=== PATIENT | male | born 1965 | race Caucasian/White ===

== ENCOUNTER 2020-02-07 14:56 | Outpatient (CLI) | payer OTHER, SELFPAY ==
[2020-02-08 17:56] LABS: SARS-CoV-2 RNA PCR Negative
== END 2020-02-07 14:57 | disposition home or self-care (01) ==
LOC: CHSLAB 15:03
PROVIDERS: PCP Internal Medicine; Visit Provider Internal Medicine
DX: Z20.828 Contact with and (suspected) exposure to other viral communicable diseases (principal)
CPT/HCPCS: 87635; C9803; U0003

== ENCOUNTER → 2020-06-29 01:53 | Outpatient (CLI) | payer OTHER, SELFPAY ==
[2020-07-01 18:41] LABS: SARS-CoV-2 RNA PCR Negative
== END ==
PROVIDERS: PCP Internal Medicine; Visit Provider Internal Medicine Gastroenterology
DX: Z01.812 Encounter for preprocedural laboratory examination (principal); Z20.822 Contact with and (suspected) exposure to COVID-19
CPT/HCPCS: C9803; U0003; U0005

== ENCOUNTER → 2020-08-03 00:07 | Outpatient (CLI) | payer OTHER, SELFPAY ==
[2020-08-03 16:57] LABS: SARS-CoV-2 RNA PCR Negative
== END ==
PROVIDERS: PCP Internal Medicine; Visit Provider Internal Medicine Gastroenterology
DX: Z01.812 Encounter for preprocedural laboratory examination (principal); Z20.822 Contact with and (suspected) exposure to COVID-19
CPT/HCPCS: C9803; U0003; U0005

== ENCOUNTER 2020-08-07 01:37 | Day surgery (SDC) | payer OTHER, SELFPAY ==
[2020-06-26 11:17] VITALS: BMI 24.0
[2020-07-16 12:41] VITALS: BMI 24.0
[2020-08-07 09:58] VITALS: BP 127/66; PULSE 57; RESP 18; TEMP 36.2; O2SAT 99
[2020-08-07] MEDS: LACTATED RINGERS 1,000 ML 150 ML IV CONT (10:05)
--- NOTE | 2020-08-07 10:51 | WPDANESEPPF ---
Anes - Initial Pre Proc Eval Procedure: Operation Date: 08/07/20 11:00 Proposed Procedures p Esophagogastroduodenoscopy & Screening Colonoscopy - Roderick Chappell MD Date/Time: 08/07/20 10:51 Surgeon: Roderick Chappell MD Pre Op Diagnosis: Abdomen pain, Neoplasm Screening Patient Data Age: 55 Gender: M Height: 1.74 m Weight: 76.6 kg Last Vital Signs Temp 97.1 F L 08/07/20 09:58 Pulse 57 L 08/07/20 09:58 Resp 18 08/07/20 09:58 BP 127/66 08/07/20 09:58 Pulse Ox 99 08/07/20 09:58 Allergies Allergy/AdvReac Type Severity Reaction Status Date / Time codeine AdvReac Nausea and Verified 08/07/20 09:56 Vomiting narcotic AdvReac Hypotension Uncoded 08/07/20 09:56 Home Medications Medication Instructions Recorded Confirmed Type testosterone 1 packet TRANSDERMAL DAILY 06/26/20 08/07/20 History Patient hx anesthesia problems: none Family hx anesthesia problems: none PMF Past Medical History Medical History (Updated 08/07/20 @ 10:51 by Zack Frank MD) Hypogonadotropic hypogonadism Normal colonoscopy Overweight (BMI 25.0-29.9) Social History Social History (Updated 04/12/20 @ 10:52 by Shannan Cantu CMA) Smoking status: Never smoker Alcohol intake: current Substance use: never Substance use type: does not use Living arrangements: alone Gender identity (if verbalized by the patient): Male Spiritual care concerns: No Anes - Eval Final PreProcedure Day of Procedure 08/07/20 10:51 Patient weight: overweight Heart: regular rate and rhythm Lungs: clear to auscultation Airway: Mallampati scale class II Neurological: alert and oriented Last oral intake: >/= 8 hours ASA classification: II Emergent: no Anesthetic plan: proceed Anesthesia type and monitoring: general GIVS and standard monitoring Informed Consent: The patient's anesthetic plan and its attendant risks and benefits were discussed with the patient/family/POA. Questions were solicited and answers provided to the satisfaction of the patient/family/POA.
--- NOTE | 2020-08-07 10:55 | PM.HPGS ---
History of Present Illness History of Present Illness Consent: Risks, benefits, and alternatives have been discussed and questions answered. Patient agrees to proceed with procedure. Chief complaint: Abdomen pain, Neoplasm Screening Narrative: Endy Parr is a 55 year old male with chronic pain in left abdomen worse after eating/drinking. He also needs colon screening. Review of Systems Constitutional: Constitutional: Denies headache(s) and Denies weakness Eyes: Eyes: Denies blurry vision ENT: Reports Normal hearing present, Denies headache(s) and Denies neck pain Cardiovascular: Cardiovascular: Denies chest pain and Denies dyspnea Respiratory: Respiratory: Denies dyspnea Gastrointestinal: Gastrointestinal: Reports no additional gastrointestinal complaints Genitourinary: Genitourinary: Denies dysuria Musculoskeletal: Musculoskeletal: Denies neck pain Integumentary/Breasts: Skin/Breast: Denies dry skin Neurologic: Reports Normal hearing present, Denies headache(s) and Denies weakness Psychiatric: Psychiatric: Denies anxiety Endocrine: Endocrine: Denies change in body appearance Hematologic/Lymphatic: Hematologic/Lymphatic: Denies easy bleeding Allergic/Immunologic: Allergic/Immunologic: Denies urticaria [facility] Past Medical History Medical History (Updated 08/07/20 @ 10:56 by Roderick Chappell MD) Colon cancer screening Hypogonadotropic hypogonadism Left sided abdominal pain Normal colonoscopy Overweight (BMI 25.0-29.9) Social History Social History (Updated 04/12/20 @ 10:52 by Shannan Cantu CMA) Smoking status: Never smoker Alcohol intake: current Substance use: never Substance use type: does not use Living arrangements: alone Gender identity (if verbalized by the patient): Male Spiritual care concerns: No Meds Home Medications and Allergies Home Medications Medication Instructions Recorded Confirmed Type testosterone 1 packet TRANSDERMAL DAILY 06/26/20 08/07/20 History Allergies Allergy/AdvReac Type Severity Reaction Status Date / Time codeine AdvReac Nausea and Verified 08/07/20 09:56 Vomiting narcotic AdvReac Hypotension Uncoded 08/07/20 09:56 Vital Signs Vital Signs - 24 hr 08/07/20 09:58 Temperature 97.1 F L Pulse Rate 57 L Respiratory Rate 18 Blood Pressure 127/66 Pulse Oximetry 99 Exam Const: General: comfortable and no acute distress HENMT: General nose exam: Normal nares present Eyes: General: appearance normal, both eyes and all related structures Neck: Neck: no JVD Resp: Auscultation: clear to auscultation bilaterally Cardio: Rate: regular rate Rhythm: regular rhythm GI: Inspection: non-distended GI Palp: Yes Soft to palpation Skin: General skin exam: normal color Neuro: General: gait normal Speech: normal speech Extrem: General: normal to inspection Psych: Mental Status: mental status grossly normal Assessment and Plan Assessment and plan (1) Left sided abdominal pain: Code(s): R10.9 - Unspecified abdominal pain Status: Acute Assessment and Plan: egd (2) Colon cancer screening: Code(s): Z12.11 - Encounter for screening for malignant neoplasm of colon Status: Acute Assessment and Plan: colonoscopy
[2020-08-07 11:33] VITALS: BP 127/78; PULSE 58; RESP 20; O2SAT 99
[2020-08-07 11:43] VITALS: BP 120/72; PULSE 55; RESP 20; O2SAT 100
[2020-08-07 11:53] VITALS: BP 120/76; PULSE 51; RESP 17; O2SAT 100
== END 2020-08-07 12:02 | disposition home or self-care (01) ==
PROVIDERS: PCP Internal Medicine; Visit Provider Internal Medicine Gastroenterology
PROC: 0DJ08ZZ Inspection of Upper Intestinal Tract, Via Natural or Artificial Opening Endoscopic (ICD-10-PCS; CPT 43235; principal; 2020-08-07 11:00)
DX: Z12.11 Encounter for screening for malignant neoplasm of colon (principal); D12.3 Benign neoplasm of transverse colon; K64.8 Other hemorrhoids; K29.50 Unspecified chronic gastritis without bleeding; E29.1 Testicular hypofunction
CPT/HCPCS: 45380; 43239; 88305; J2704; J7120

== ENCOUNTER 2020-09-10 10:53 | Outpatient (CLI) | payer OTHER, SELFPAY ==
--- NOTE | ~2020-09-10 | XR_ITS ---
EXAMINATION: XR small bowel follow through DATE: 09/10/2020 12:52 INDICATION: Left-sided abdominal pain TECHNIQUE: Burner Machine Operator radiograph(s) of the abdomen was/were obtained. Oral contrast was administered, and sequential radiographs of the abdomen were obtained until oral contrast was noted to be in the proxi mal colon. Spot fluoroscopic images of the small bowel were obtained. Fluoroscopy exposure time was 2 .7 minutes. The DAP for this procedure was 62.74 Gycm2. COMPARISON: None. FINDINGS: Burner Machine Operator image is unremarkable. There are no dilated loops of bowel. Transit time from the sto mach to proximal colon was approximately 60 minutes. There is normal caliber and mucosal fold pattern throughout the small bowel. Terminal ileum is normal. No tethering or abnormal mass effect observe d upon the small bowel with real-time fluoroscopy. IMPRESSION: 1. Unremarkable small bowel follow-through. No correlate for the patient's left-sided abdominal pain Reviewed, dictated and finalized at location A. IMPRESSION: 1. Unremarkable small bowel follow-through. No correlate for the patient's left -sided abdominal pain
== END 2020-09-10 10:54 | disposition home or self-care (01) ==
LOC: ANHIMG 10:55
PROVIDERS: PCP Internal Medicine; Visit Provider Internal Medicine Gastroenterology
DX: R10.9 Unspecified abdominal pain (principal)
CPT/HCPCS: 74250

== ENCOUNTER 2021-07-08 17:42 | Emergency (ER) | payer MEDICAID, SELFPAY ==
[2021-07-08 18:05] VITALS: BP 116/80; PULSE 86; RESP 18; TEMP 36.7; O2SAT 98
--- NOTE | 2021-07-08 19:33 | ED.ANIMALBIT ---
HPI - Animal Bite General Chief Complaint: Animal Bite Stated Complaint: needs rabies vaccine Time Seen by Provider: 07/08/21 18:39 Source: patient Mode of arrival: ambulatory Limitations: no limitations History of Present Illness HPI narrative: This is a 56-year-old male that presents to the emergency department for animal bite sustained yesterday. Reports he had rescued several squirrels. He was releasing them into the wild and was bit by 1. He contacted the health department. He was updated on his tetanus vaccine and told to come to the emergency department for administration of rabies vaccine and immunoglobulin. Denies fever, erythema, or abnormal drainage. Related Data Home Medications Medication Instructions Recorded Confirmed testosterone 1 packet transdermal DAILY 06/26/20 08/07/20 Allergies Allergy/AdvReac Type Severity Reaction Status Date / Time codeine AdvReac Nausea and Verified 08/07/20 09:56 Vomiting narcotic AdvReac Hypotension Uncoded 08/07/20 09:56 Review of Systems Review of Systems: CONSTITUTIONAL: Denies fever SKIN: Reports bite wound All systems reviewed & are unremarkable except as noted in HPI and below PMFSH Past Medical History Medical History (Updated 07/08/21 @ 20:20 by Nuria Ayala PA-C) Colon cancer screening Hypogonadotropic hypogonadism Left sided abdominal pain Normal colonoscopy Overweight (BMI 25.0-29.9) Social History Social History (Updated 04/12/20 @ 10:52 by Shannan Cantu [facility]) Smoking status: Never smoker Alcohol intake: current Substance use: never Substance use type: does not use Gender identity (if verbalized by the patient): Male Spiritual care concerns: No Exam Narrative: GENERAL: Well-appearing, well-nourished, and in no acute distress. HEAD: Normocephalic, atraumatic. EYES: EOMI. EXTREMITIES: Normal range of motion. No edema. Very small superficial bite stanley to the right 1st and 5th fingers without surrounding erythema or warmth SKIN: Warm, dry, no rash. NEURO: No focal deficits. Alert and oriented x3. PSYCH: Normal mood and affect Course Vital Signs Vital signs: Vital Signs Temperature 98.0 F 07/08/21 18:05 Pulse Rate 86 07/08/21 18:05 Respiratory Rate 18 07/08/21 18:05 Blood Pressure 116/80 07/08/21 18:05 Pulse Oximetry 98 07/08/21 18:05 Oxygen Delivery Room Air 07/08/21 18:05 Temperature 98.0 F 07/08/21 18:05 Pulse Rate 86 07/08/21 18:05 Respiratory Rate 18 07/08/21 18:05 Blood Pressure 116/80 07/08/21 18:05 Pulse Oximetry 98 07/08/21 18:05 Oxygen Delivery Room Air 07/08/21 18:05 MDM - Animal Bite MDM Narrative Medical decision making narrative: Patient presents to the ER for squirrel bite sustained yesterday. Contacted the health department and was prompted to be seen here to receive his first rabies vaccination and immunoglobulin. No active signs of infection of the bites at this time. Has two very small superficial bites wounds to the right 1st and 5th fingers. He was updated on tetanus by the health department. Rabies vaccination and immunoglobulin given. Marlen Silva will be arranging further vaccinations with patient. He was given warnings to return to the ER Critical Care Time Critical Care Time Critical Care Time: No Discharge Plan Discharge Clinical Impression: Bitten by squirrel, initial encounter Patient Disposition: Home, Self-Care Condition: Stable Instructions: Antibiotic Form, Animal Bite (ED) Additional Instructions: Return to the ER if you experience fever, redness and swelling of your wounds, abnormal drainage from your wounds, or any other symptoms that are concerning to you Take oral antibiotic as prescribed. This will help prevent infection in the wounds. You will receive your next dose of rabies vaccination on Wednesday (07/11). Contact Marlen Silva to arrange this . You will then receive a vaccine 07/15 and
[2021-07-08] MEDS: RABIES IMMUNE GLOBULIN/PF 300 UNITS/ML VIAL 100 UNITS IM (19:47)
[2021-07-08] MEDS: RABIES IMMUNE GLOBULIN/PF 1,500 UNITS/5 ML VIAL 1500 UNITS IM (19:47)
[2021-07-08] MEDS: RABIES VACCINE (RABAVERT) 2.5 UNITS VIAL IM (19:54)
== END 2021-07-08 20:38 | disposition home or self-care (01) ==
PROVIDERS: Emergency Provider Emergency Medicine; PCP Internal Medicine
DX: S61.051A Open bite of right thumb without damage to nail, initial encounter (principal); S61.256A Open bite of right little finger without damage to nail, initial encounter; Z23 Encounter for immunization; W53.21XA Bitten by squirrel, initial encounter
CPT/HCPCS: 90375; 90471; 90675; 96372; 99284

== ENCOUNTER 2021-07-22 07:28 | Outpatient (RCR) | payer MEDICAID, SELFPAY | END 2021-10-09 23:59 | disposition home or self-care (01) | LOC: ANHVASCINF 07:28 | PROVIDERS: PCP Internal Medicine; Visit Provider Physician Assistant | DX: Z20.3 Contact with and (suspected) exposure to rabies (principal); W53.21XA Bitten by squirrel, initial encounter | CPT/HCPCS: 90471; 90675 ==

== ENCOUNTER 2022-03-14 09:55 | Emergency (ER) | payer BC, MEDICAID, SELFPAY ==
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
--- NOTE | ~2022-03-14 | CT_ITS ---
EXAMINATION: CT brain wo con INDICATION: Head injury COMPARISON: 09/11/2013 TECHNIQUE: Standard unenhanced head CT. The dose-length product (DLP) was 605.33 mGy-cm. The mA was a djusted according to patient size. Iterative reconstruction technique was employed. FINDINGS: There is no intracranial hemorrhage, acute infarction, or abnormal mass lesion. The ventric les are normal. There is no abnormal mass effect or midline shift. The paulino-white matter differentiat ion is normal. The basal cisterns are patent. The orbits are normal. The paranasal sinuses, mastoids and calvarium are normal. IMPRESSION: 1. No acute intracranial abnormality. Reviewed, dictated and finalized at location A. L MAKER
[2022-03-14 09:56] VITALS: BP 134/90; PULSE 81; RESP 16; O2SAT 100
[2022-03-14 10:03] VITALS: TEMP 35.9
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
[2022-03-14 10:55] VITALS: BP 134/90; PULSE 87; RESP 16; TEMP 35.9; O2SAT 100
== END 2022-03-14 11:03 | disposition home or self-care (01) ==
PROVIDERS: Emergency Provider Internal Medicine Critical Care Medicine; PCP Internal Medicine
DX: F07.81 Postconcussional syndrome (principal); R07.89 Other chest pain; Y04.0XXA Assault by unarmed brawl or fight, initial encounter
CPT/HCPCS: 70450; 71045; 99284

== ENCOUNTER 2022-09-15 14:58 | Outpatient (CLI) | payer BC, SELFPAY ==
--- NOTE | ~2022-09-15 | XR_ITS ---
EXAM: XR knee RT 3V DATE: 09/15/2022 15:16 HISTORY: Injury-hyperextension. Rt. knee pain x1 month; worsening. . COMPARISON: None available. FINDINGS: Subjectively decreased mineralization. No fracture or dislocation. No lytic or blastic les ion. Joint spaces are minimal medial joint space narrowing and medial and patellofemoral osteophytosi s. No erosion or periosteal change. Soft tissues within normal limits. IMPRESSION: No acute osseous finding. Osteopenia. Mild right knee osteoarthritis. Reviewed, dictated and finalized at location K. IMPRESSION: No acute osseous finding. Osteopenia. Mild right knee osteoarthriti s.
== END 2022-09-15 14:59 | disposition home or self-care (01) ==
LOC: CHSIMG 15:00
PROVIDERS: PCP Internal Medicine; Visit Provider Nurse Practitioner Family
DX: M25.561 Pain in right knee (principal); M85.861 Other specified disorders of bone density and structure, right lower leg; M17.11 Unilateral primary osteoarthritis, right knee
CPT/HCPCS: 73562

== ENCOUNTER → 2022-09-29 14:10 | Outpatient (CLI) | payer BC, MEDICAID, SELFPAY ==
--- NOTE | ~2022-09-29 | MR_ITS ---
EXAMINATION: MR knee RT wo con DATE: 09/29/2022 14:47 INDICATION: Right knee pain and arthritis TECHNIQUE: Magnetic resonance imaging (MRI) of the right knee was performed without intravenous contr ast. Sequences included coronal PD-weighted FSE, coronal PD-weighted FS FSE, sagittal T2-weighted FS E, sagittal PD-weighted FS FSE and axial PD weighted fat saturated FSE. COMPARISON: Right knee radiographs dated 09/15/2022 FINDINGS: Medial compartment: Medial meniscus is normal. Articular cartilage is normal. Lateral compartment: Lateral meniscus is normal. Articular cartilage is normal. Patellofemoral compartment: Curved deep chondral fissure involving greater than 50% of the cartilage thickness but without degene rative subchondral changes at the central aspect of the lateral patellar facet. Posterior chondral fi ssuring involving less than 50% cartilage thickness at the medial facet evident the inferior aspect o f the medial trochlea. Ligaments and tendons: Anterior and posterior cruciate ligaments are normal. The medial collateral ligament and fibular deangelo ateral ligament complex are normal. The extensor mechanism is normal. The visualized medial and later al hamstring tendons as well as the iliotibial band are normal. Fluid: Physiologic amount of fluid in the joint space. No loose osteochondral bodies identified. Osseous/other: Normal marrow signal. No fracture or pathologic marrow replacing process. IMPRESSION: 1. Mild patellofemoral osteoarthritis with moderate grade chondromalacia. Reviewed, dictated and finalized at location A.
== END ==
PROVIDERS: PCP Internal Medicine; Visit Provider Nurse Practitioner Family
DX: M17.11 Unilateral primary osteoarthritis, right knee (principal)
CPT/HCPCS: 73721

== ENCOUNTER 2024-04-24 08:14 | Outpatient (CLI) | payer BC, SELFPAY ==
--- NOTE | ~2024-04-24 | CT_ITS ---
CT of the Abdomen and Pelvis: Indication: Abdominal pain Technique: 2.5 mm axial scans were obtained through the abdomen and pelvis following intravenous adm inistration of 100 cc of Omnipaque 350. Dose reduction technique was used on this scan by utilizing a utomated exposure control and iterative reconstruction technique. The dose-length product (DLP) was 3 82.39 mGy-cm. Findings: Scans through the lung bases are unremarkable. The liver, spleen, pancreas, gallbladder, adrenals and kidneys are within normal limits. No evidence of aortic aneurysm. No lymphadenopathy. No bowel obstruction or bowel wall thickening. There is no evidence to suggest acute appendicitis. Images through the pelvis were performed. Urinary bladder unremarkable. Prostate gland and seminal ve sicles are unremarkable. No ascites. Impression: No significant abnormalities seen. Reviewed, dictated and finalized at [facility]. Impression: No significant abnormalities seen.
--- OUTSIDE RECORDS SUMMARY | 2024-04-24 08:35 | XMS_ITS ---
Author Organization [facility] Address [address] [place], [place] [id number] Care Team Providers Care Piping Manager Name Role Phone Florencio Martinez Unavailable Unavailable DORA WELSH Unavailable [phone] Encounters Encounter Location Date Provider Diagnosis [facility] [address] [place], [place] [id number] 09/20/2023 DORA WLESH Plan Of Treatment No Information Progress Notes * OPAL OSCARDOB: 6 (58 yo M)Acc No.[id number]:09/20/2023 Patient: OPAL LACEY :1965 A ge:58 Y S ex:Male Address:[address] [place] [address] * true * Date: Generated for James serrano/Abdirizak/eTransmitting on: 0 04/24/2024 08:35 AM CDT
--- OUTSIDE RECORDS SUMMARY | 2024-04-24 08:35 | XMS_ITS | Referral Summary ---
Author Organization [facility] Address [address] [place] [id number] Care Team Providers Care Shift Manager Name Role Phone Florencio Martinez MD Primary Care Provider [phone] Encounters Date Type Department Care Team Description 04/03/2024 8:30 AM NAVAL AIRCREWMAN OPERATOR Office Visit [facility] [address] [phone] Svetlana Mckeon, OD Anatomical narrow angle borderline glaucoma, bilateral (Primary Dx); Family history of macular degeneration; Age-related nuclear cataract of both eyes 02/22/2024 Telephone [facility] [address] [place] [phone] Svetlana Mckeon, OD 02/21/2024 8:00 AM [employer]CREW[employer] OPERATOR Office Visit [facility] [address] [phone] Svetlana Mckeon, OD Anatomical narrow angle borderline glaucoma, bilateral (Primary Dx); Family history of macular degeneration from Last 3 Months Allergies Active Allergy Reactions Criticality Noted Date Comments Codeine Dizziness Medium 12/21/2018 Medications testosterone 20.25 mg/1.25 gram (1.62 %) gel in metered-dose pump APPLY 1 PUMP (20.25MG) TO SKIN DAILY IN THE MORNING 01/20/2024 Active Active Problems Problem Noted Date Diagnosed Date Age-related nuclear cataract of both eyes 2024 Assessment & Plan (04/03/2024 9:14 AM NAVAL AIRCREWMAN OPERATOR): NVS, monitor Anatomical narrow angle borderline glaucoma, amilcar ateral 02/21/2024 Assessment & Plan (04/03/2024 9:15 AM NAVAL AIRCREWMAN OPERATOR): Normal intraocular pressure (IOP) both eyes (OU) Angles not closeable on gonio - lens rise both eyes (OU) Fu 1 year sooner prn Assessment & Plan (02/21/2024 8:35 AM NAVAL AIRCREWMAN OPERATOR): Normal intraocular pressure (IOP) both eyes (OU) Angles not closeable on gonio - lens rise both eyes (OU) FU for am DFE, pt defers, helicopter ride today Family history of macular degeneration 5 Assessment & Plan (04/03/2024 9:15 AM NAVAL AIRCREWMAN OPERATOR): + Brother, mother, - mother had injections Normal exam, monitor Assessment & Plan (02/21/2024 8:36 AM NAVAL AIRCREWMAN OPERATOR): + Brother, mother, - mother had injections Fu for DFE Atrophy of both testes 03/17/2013 Hypogonadism in male 06/07/2010 Overview (05/21/2017): Description: Hypogonadism Social History Tobacco Use Types Packs/Day Years Used Date Smoking Tobacco: Never Sex and Gender Information Value Date Recorded Sex Assigned at Not on file Legal Sex Male 1:22 AM NAVAL AIRCREWMAN OPERATOR Gender Identity Not on file Sexual Orientation Not on file Last Filed Vital Signs Vital Sign Reading Time Taken Comments Blood Pressure 110/65 03/23/2014 1:10 PM NAVAL AIRCREWMAN OPERATOR Pulse 60 03/23/2014 1:10 PM NAVAL AIRCREWMAN OPERATOR Temperature - - Respiratory Rate - - Oxygen Saturation - - Inhaled Oxygen Concentration - - Weight 71.4 kg (157 lb 6.2 oz) 03/23/2014 1:10 P M NAVAL [employer]CREWMAN OPERATOR Height 174.6 cm (5' 8.75 ) 03/23/2014 1:10 PM CS T Body Mass Index 23.41 03/23/2014 1:10 PM NAVAL AIRCREWMAN OPERATOR Plan of Treatment Not on file Insurance [employer] Care Teams Shift Manager Relationship Specialty Start Date End Date Florencio Martinez MD PCP - General Internal Medicine 06/14/17
--- OUTSIDE RECORDS SUMMARY | 2024-04-24 08:35 | XMS_ITS | Clinical Summary ---
Author Organization [facility] Address [address] [place] [phone] Care Team Providers Care Grain Farmer Name Role Phone Florencio Martinez MD Primary Care Provider [phone] Allergies Active Allergy Reactions Criticality Noted Date Comments Codeine Dizziness Medium 12/21/2018 Medications testosterone 20.25 mg/1.25 gram (1.62 %) gel in metered-dose pump APPLY 1 PUMP (20.25MG) TO SKIN DAILY IN THE MORNING 01/20/2024 Active Active Problems Problem Noted Date Diagnosed Date Age-related nuclear cataract of both eyes 2024 Assessment & Plan (04/03/2024 9:14 AM MANAGER CLIENT SUPPORT): NVS, monitor Anatomical narrow angle borderline glaucoma, amilcar ateral 02/21/2024 Assessment & Plan (04/03/2024 9:15 AM MANAGER CLIENT SUPPORT): Normal intraocular pressure (IOP) both eyes (OU) Angles not closeable on gonio - lens rise both eyes (OU) Fu 1 year sooner prn Assessment & Plan (02/21/2024 8:35 AM MANAGER CLIENT SUPPORT): Normal intraocular pressure (IOP) both eyes (OU) Angles not closeable on gonio - lens rise both eyes (OU) FU for am DFE, pt defers, helicopter ride today Family history of macular degeneration Assessment & Plan (04/03/2024 9:15 AM MANAGER CLIENT SUPPORT): + Brother, mother, - mother had injections Normal exam, monitor Assessment & Plan (02/21/2024 8:36 AM MANAGER CLIENT SUPPORT): + Brother, mother, - mother had injections Fu for DFE Atrophy of both testes 03/17/2013 Hypogonadism in male 06/07/2010 Overview (05/21/2017): Description: Hypogonadism Encounters Date Type Department Care Team Description 04/03/2024 8:30 AM MANAGER CLIENT SUPPORT Office Visit [facility] [address] [place] [phone] Svetlana Mckeon, OD Anatomical narrow angle borderline glaucoma, bilateral (Primary Dx); Family history of macular degeneration; Age-related nuclear cataract of both eyes 02/22/2024 Telephone [facility] [address] [place] [address] Svetlana Mckeon, OD 02/21/2024 8:00 AM MANAGER CLIENT SUPPORT Office Visit [place] [facility] [address] [address] Svetlana Mckeon, OD Anatomical narrow angle borderline glaucoma, bilateral (Primary Dx); Family history of macular degeneration from Last 3 Months Family History Medical History Relation Name Comments Diabetes Cousin Family history of diabetes mellitus - (Added by TW Conv) Diabetes Father Family history of diabetes mellitus - (Added by TW Conv) Hyperlipidemia Father High choleste rol - (Added by TW Conv) Hypertension Father Family history of hypertension - (Added by TW Conv) Diabetes Maternal Grandfather Family history of diabetes mellitus - Relation: Grandfather (Added by TW Conv) Macular degeneration Mother Macular degeneration Mother's Brother Relation Name Status Comments Cousin Father Maternal Grandfather Mother Mother's Brother Social History Tobacco Use Types Packs/Day Years Used Date Smoking Tobacco: Never Sex and Gender Information Value Date Recorded Sex Assigned at Not on file Legal Sex Male 1:22 AM MANAGER CLIENT SUPPORT Gender Identity Not on file Sexual Orientation Not on file Obstetrics History Last Filed Vital Signs Vital Sign Reading Time Taken Comments Blood Pressure 110/65 03/23/2014 1:10 PM MANAGER CLIENT SUPPORT Pulse 60 03/23/2014 1:10 PM MANAGER CLIENT SUPPORT Temperature - - Respiratory Rate - - Oxygen Saturation - - Inhaled Oxygen Concentration - - Weight 71.4 kg (157 lb 6.2 oz) 03/23/2014 1:10 P M MANAGER CLIENT SUPPORT Height 174.6 cm (5' 8.75 ) 03/23/2014 1:10 PM CS T Body Mass Index 23.41 03/23/2014 1:10 PM MANAGER CLIENT SUPPORT Plan of Treatment Health Maintenance Due Date Last Done Comments Colon Cancer Screening-Colonoscopy 1965 Depression Screening 1965 Hepatitis C Screening 1965 Prostate Cancer Screening-PSA 1965 Hepatitis B Screening 1983 Regular Well Visit/Exam 18-64 1983 Zoster Vaccine (1 of 2) 2015 Influenza Vaccine (#1) 2023 DTaP/Tdap/Td Vaccine (3 - Td or Tdap) 07/09/2031 07/08/2021, 05/30/2017 Pneumococcal vaccine <65 Aged Out No longer eligible based on patient's age to complete this topic Insurance [employer] OOS Care Teams Grain Farmer Relationship Specialty Start Date End Date Florencio Martinez MD PCP - General Internal Medicine 06/14/17
--- OUTSIDE RECORDS SUMMARY | 2024-04-24 08:35 | XMS_ITS | Patient Health Record ---
Author Organization [facility] Address [address] [place], [place] [phone] Care Team Providers Care Time Clock Repairer Name Role Phone Florencio Martinez Unavailable Unavailable DORA WELSH Unavailable [phone] Allergies Allergen (clinical drug ingredient) Drug/Non Drug Allergy documented on EMR Reaction Allergy Type Onset Date Status codeine Codeine Unknown Drug Allergy Active Reason For Referral No Information Medications Medication SIG (Take, Route, Frequency, Duration) Notes Start Date End Date Status Clotrimazole-Betamet hasone 1-0.05 % 1 application Externally Twice a day 30g tube or similar 12/21/2022 Active Clotrimazole-Betamet hasone 1-0.05 % 1 application Externally to skin Twice a day one tube, 30g or similar 11/30/2022 Active Encounters Encounter Location Date Provider Diagnosis [facility] [address] [place], [place] [phone] 09/20/2023 DORA SNOOK [facility] [place] [address] [facility] [address] [place], [place] [phone] 09/20/2023 DORA SNOOK Plan Of Treatment No Information Insurance Providers Payer Name Payer Address Payer Phone Subscriber Number Group Number Insured Name Patient Relationship to Insured Coverage Start Date Coverage End Date [facility] ([facility]) ATTN CLAIMS [address] [place] [address] [id number] OPAL OSCAR Self - patient is the insured Medical (General) History Medical History History ICD Code anemia Skin Disorder Surgical History Surgery Date(Month/Year) Hand surgery
--- OUTSIDE RECORDS SUMMARY | 2024-04-24 08:35 | XMS_ITS | Clinical Summary ---
Author Organization [facility] Address [address] [place] [address] Care Team Providers Care Network Security Engineer Name Role Phone Florencio Martinez MD Primary Care Provider [phone] Allergies Active Allergy Reactions Criticality Noted Date Comments Codeine Dizziness Medium 12/21/2018 Medications No known medications Social History Tobacco Use Types Packs/Day Years Used Date Smoking Tobacco: Never Smokeless Tobacco: Never Alcohol Use Standard Drinks/Week Comments Yes 0 (1 standard drink = 0.6 oz pur e alcohol) 6 pack/week Sex and Gender Information Value Date Recorded Sex Assigned at Not on file Legal Sex Male 5:17 PM WOOD LATHE OPERATOR Gender Identity Not on file Sexual Orientation Not on file Last Filed Vital Signs Vital Sign Reading Time Taken Comments Blood Pressure 130/75 12/21/2018 10:12 PM WOOD LATHE OPERATOR Pulse 56 12/21/2018 10:12 PM WOOD LATHE OPERATOR Temperature 36.1 C (97 F) 12/21/2018 5:42 PM WOOD LATHE OPERATOR Respiratory Rate 18 12/21/2018 10:12 PM WOOD LATHE OPERATOR Oxygen Saturation 96% 12/21/2018 10:12 PM WOOD LATHE OPERATOR Inhaled Oxygen Concentration - - Weight 72.6 kg (160 lb) 12/21/2018 5:42 PM WOOD LATHE OPERATOR Height 172.7 cm (5' 8 ) 12/21/2018 5:42 PM WOOD LATHE OPERATOR Body Mass Index 24.33 12/21/2018 5:42 PM WOOD LATHE OPERATOR Plan of Treatment Health Maintenance Due Date Last Done Comments Colorectal Cancer Screening Colonoscopy (10 Years) 1965 Annual Physical 02/10/1968 Hepatitis C 1983 DTaP, Tdap and Td Vaccines ( 1 - Tdap) 02/10/1984 Hepatitis B Vaccines (1 of 3 - 19+ 3-dose series) 02/10/1984 Zoster Vaccines (1 of 2) 2015 COVID-19 Vaccine (2023-2 5 season) 2023 Influenza Adult (#1) 2023 Meningococcal B Vaccine Aged Out No l onger eligible based on patient's age to complete this topic Meningococcal Vaccine Aged Out No luis lee eligible based on patient's age to complete this topic Pneumococcal Vaccine: Pediat rics (0 to 5 Years) and At-Risk Patients (6 to 64 Years) Aged Out No longer eligible b ased on patient's age to complete this topic RSV Immunizations Under 20 Months Aged Out No longer eligible based on patient's age to complete this topic Care Teams Network Security Engineer Relationship Specialty Start Date End Date Florencio Martinez MD [address] [place] [address] PCP - General INTERNAL MEDICINE 12/21/18
--- OUTSIDE RECORDS SUMMARY | 2024-04-24 08:36 | XMS_ITS ---
Author Organization [facility] Address [address] [place], [place] [phone] Care Team Providers Care Market Development Trainer Name Role Phone Florencio aMrtinez Unavailable Unavailable OOKDORA Unavailable [phone] Medications Medication SIG (Take, Route, Frequency, Duration) Notes Start Date End Date Status Clotrimazole-Betamet hasone 1-0.05 % 1 application Externally Twice a day for 14 days one tube, 30g or similar 09/20/2023 10/18/2023 Active Encounters Encounter Location Date Provider Diagnosis [facility] [address] [place], [place] [id number] 09/20/2023 DORA WELSH Plan Of Treatment Medication Medication Name Sig Start Date Stop Date Notes Clotrimazole-Betametha sone 1-0.05 % 1 application Externally Twice a day for 14 days 09/20/2023 10/18/2023 one tube, 30g or similar Progress Notes * OPAL OSCARDOB: 6 (58 yo M)Acc No.[id number]:09/20/2023 Patient: OPAL LACEY :1965 A ge:58 Y S ex:Male Address:[address] [place] [address] * Refills Start Clotrimazole-Betamethasone Cream, 1-0.05 %, Externally, 1, 1 application, Twice a day, 14 days, Refills=1 * true * Date: Generated for James serrano/Abdirizak/Domingoitting on: 0 04/24/2024 08:35 AM CDT
--- OUTSIDE RECORDS SUMMARY | 2024-04-24 08:36 | XMS_ITS ---
Author Organization [facility] Address [address] [place], [place] [phone] Care Team Providers Care Proof Coins Inspector Name Role Phone Florencio Martinez Unavailable Unavailable DORA WELSH Unavailable [phone] Allergies Allergen (clinical drug ingredient) Drug/Non Drug Allergy documented on EMR Reaction Allergy Type Onset Date Status codeine Codeine Unknown Drug Allergy Active REASON FOR VISIT Athlete Foot Check, The patient is pleased to report that this is the best that his feet have felt in a long time. He is happy with his improvement Medications Medication SIG (Take, Route, Frequency, Duration) Notes Start Date End Date Status Clotrimazole-Betamet hasone 1-0.05 % 1 application Externally Twice a day 30g tube or similar 12/21/2022 Active Clotrimazole-Betamet hasone 1-0.05 % 1 application Externally to skin Twice a day one tube, 30g or similar 11/30/2022 Active Vital Signs Weight 160 lbs 12/21/2022 Weight-kg 72.57 kg 12/21/2022 Height 68 in 12/21/2022 Height-cm 172.72 cm 12/21/2022 BMI 24.33 kg/m2 12/21/2022 Encounters Encounter Location Date Provider Diagnosis [facility] [address] [place], [place] [id number] 12/21/2022 DORA WELSH Tinea pedis B35.3 ; Other eczema L30.8 ; Pain in right foot M79.671 and Left foot pain M79.672 Assessments Encounter Date Diagnosis (ICD Code) Assessment Notes Treatment Notes Treatment Clinical Notes Section Notes 12/21/2022 Tinea pedis (ICD-10 - B35.3) Tinea Pedis: Tinea pedis (athlete's foot) is a dermatologic fungal infection that typically affects the epidermis and is the most common dermatophyte infection. Tinea pedis is transmitted via direct skin contact, contaminated floors, towels and clothing/shoes and thrives in warm, moist environments. Approximately 26.5 million people are affected annually. Nearly half of these people will suffer from multiple episodes for years. Interdigital tinea pedis presents as erythematous, pruritic, scales or erosions between toes. [place]-type tinea pedis affects the soles and medial and lateral sides of the feet and often is itchy, hyperkeratotic and flaking. Inflammatory tinea pedis is characterized by pruritic erythematous, painful vesicles or bullae most commonly on the medial foot. Treatment varies from OTC preparations to a large variety of topical and oral medications. Patient education and proper foot hygiene are important components to the successful treatment of this infection. 12/21/2022 Other eczema (ICD-10 - L30.8) 12/21/2022 Pain in right foot (ICD-10 - M79.671) 12/21/2022 Left foot pain (ICD-10 - M79.672) 12/21/2022 Other The patient rola l likely have repeated bouts of tinea pedis with dermatitis. Recommend continuing lotrisone. If lotrisone stops being effective, he will make an appointment for oral medication Plan Of Treatment Medication Medication Name Sig Start Date Stop Date Notes Clotrimazole-Betametha sone 1-0.05 % 1 application Externally Twice a day 12/21/2022 30g tube or simil ar Treatment Notes Assessment Notes Tinea pedis Tinea Pedis: Tinea pedis (athlete's foot) is a dermatologic fungal infection that typically affects the epidermis and is the most common dermatophyte infection. Tinea pedis is transmitted via direct skin contact, contaminated floors, towels and clothing/shoes and thrives in warm, moist environments. Approximately 26.5 million people are affected annually. Nearly half of these people will suffer from multiple episodes for years. Interdigital tinea pedis presents as erythematous, pruritic, scales or erosions between toes. [place]-type tinea pedis affects the soles and medial and lateral sides of the feet and often is itchy, hyperkeratotic and flaking. Inflammatory tinea pedis is characterized by pruritic erythematous, painful vesicles or bullae most commonly on the medial foot. Treatment varies from OTC preparations to a large variety of topical and oral medications. Patient education and proper foot hygiene are important components to the successful treatment of this infection. Other The patient will lik edmund have repeated bouts of tinea pedis with dermatitis. Recommend continuing lotrisone. If lotrisone stops being effective, he will make an appointment for oral medication Next Appt Details Follow Up: prn, Reason: Progress Notes * OPAL OSCARDOB: 6 (57 yo M)Acc No.[id number]:12/21/2022 Patient: OPAL LACEY Provider: Stevenson Welsh DPM :1965 A ge:57 Y S ex:Male Date:12/21/2022 Address:[facility] [place], [id number] Subjective: * Chief Complaints: * 1 . Athlete Foot Check. 2. The patient is pleased to report that this is the best that his feet have felt in a long time. He is happy with his improvement. * HPI: H PI: Follow Up Visit P atient presents for follow-up visit for athlete foot on bilateral feet P atient states their problem is, improving., P atient states he no longer and any more cream he had itchiness the first time lat night in a long time M A: MJ, . * ROS: G eneral / Constitutional: Patient denies c hills, fever, weakness, night sweats. M usculoskeletal: Patient denies c hildhood foot problems, weakness. ? P eripheral Vascular: Patient denies u lceration of feet, cold extremities. ? S kin: Patient denies u lcerations, discoloration. P atient complains of i tching, , rash, dry skin. N eurologic: Patient denies b alance difficulty, confusion, difficulty speaking, dizziness. * Medical History: A nemia, Skin Disorder. * Medications: T aking Clotrimazole-Betamethasone 1-0.05 % Cream 1 application Externally to skin Twice a day , Notes to Pharmacist: one tube, 30g or similar * Allergies: C odeine. Objective: * Vitals: S hoe Size: 8..5, Wt:160lbs, Wt-k.57 kg, Ht: 68 in, Ht-cm: 172.72 cm, BMI:24.33Index, Body Surface Area: 1.86. * Examination: C onstitutional: Constitutional T he patient is awake, alert, well developed, well groomed and well nourished.. D ermatologic: Skin findings: N o evidence of tinea pedis. ? V ascular: Dorsalis pedis pulse: 2 /4, bilateral. Posterior tibial pulse: 2 /4, bilaterally. Capillary refill: l ess than 3 seconds. Edema: N o edema, bilateral. N eurologic: Gross sensation G ross sensation is intact to light touch..? M usculoskeletal: Muscle Strength M uscle strength is 5/5 in regards to dorsiflexion, plantarflexion, inversion, and eversion in bilateral lower extremities.. ? Assessment: * Assessment: 1. T inea pedis - B35.3 (Primary) 2 . O ther eczema - L30.8 3 . P ain in right foot - M79.671 4 . L eft foot pain - M79.672 Plan: * Treatment: 2. O thers Notes: The patient will likely have repeated bouts of tinea pedis with dermatitis. Recommend continuing lotrisone. If lotrisone stops being effective, he will make an appointment for oral medication? * Follow Up: p rn * Billing Information: * Visit Code: 96407 Office Visit, Est Pt., Level 4. * Procedure Codes: * N SERVICES CASE MANAGER Sign off status: Completed true * Provider: Stevenson Welsh DPM Date: 02/20/2022 Generated for James serrano/Abdirizak/Sherman on: 0 04/24/2024 08:35 AM CDT History and Physical Notes * HPI (History of Present Illness) Category Sub-Category Detail Notes Category Not es HPI Follow Up Visit Patient presents for follow-up visit for athlete foot on bilateral feet Patient states their problem is, improving., Patient states he no longer and any more cream he had itchiness the first time lat night in a long time MA: GALO, Examination Category Sub-Category Detail Notes Category Not es Dermatologic Skin findings: No evidence of tinea pedis Neurologic Gross sensation Gross sensation is intact to light touch. Vascular Dorsalis pedis pulse: 2/4, bilateral Edema: No edema, bilateral Capillary refill: less than 3 seconds Posterior tibial pulse: 2/4, bilaterally Musculoskeletal Muscle Strength Muscle strength is 5/5 in regards to dorsiflexion, plantarflexion, inversion, and eversion in bilateral lower extremities. Constitutional Constitutional The patient is a wake, alert, well developed, well groomed and well nourished.
[2024-04-24 12:42] LABS: Basophils Absolute Auto 0.04 K/mm3 (0.00-0.10); Basophils Percent Auto 0.8 % (0.0-1.0); Eosinophils Percent Auto 1.9 % (1.0-6.0); Hematocrit 46.2 % (40.0-54.0); Hemoglobin 14.7 g/dL (14.0-18.0); Immature Granulocyte Absolute 0.01 K/mm3 (0.00-0.00); Immature Granulocyte Percent A 0.2 % (0.0-0.0); Lymphocytes Absolute Auto 2.09 K/mm3 (1.10-4.50); Lymphocytes Percent Auto 39.7 % (18.0-42.0); Mean Corpuscular HGB Conc 31.8 g/dL (32-36); Mean Corpuscular Hemoglobin 30.6 pg (27.0-31.0); Mean Corpuscular Volume 96.3 fL (78.0-102.0); Mean Platelet Volume 8.9 fl (8.7-11.0); Monocytes Absolute Auto 0.28 K/mm3 (0.10-0.90); Monocytes Percent Auto 5.3 % (2.0-11.0); Neutrophils Absolute Auto 2.74 K/mm3 (1.70-7.20); Neutrophils Percent Auto 52.1 % (50.0-70.0); Platelet Count Result 276 K/mm3 (150-420); Red Cell Distribution Width 12.8 % (11.6-14.4); White Blood Count 5.3 K/mm3 (4.8-10.8)
[2024-04-24 13:46] LABS: Alanine Aminotransferase 30 U/L (16-63); Alkaline Phosphatase 84 U/L (46-116); Anion Gap 5 mmol/L (4-12); Aspartate Amino Transferase 14 U/L (15-37); Bilirubin,Total 0.5 mg/dL (0.00-1.00); Blood Urea Nitrogen 14 mg/dL (7-18); Calcium 9.1 mg/dL (8.5-10.1); Carbon Dioxide 31 mmol/L (21-32); Chloride 104 mmol/L (98-108); Estimated Glomerular Filt Rate > 60; Glucose 91 mg/dL (70-99); Osmolality Calculated 290 mOsm/kg (285-295); Potassium 4.3 mmol/L (3.5-5.1); Sodium 140 mmol/L (136-145); Total Protein 7.1 g/dL (6.4-8.2)
== END 2024-04-24 08:15 | disposition home or self-care (01) ==
PROVIDERS: PCP Internal Medicine; Visit Provider Nurse Practitioner Family
DX: R10.9 Unspecified abdominal pain (principal)
CPT/HCPCS: 36415; 74177; 80053; 85025; Q9967

== ENCOUNTER 2024-07-21 13:39 | Outpatient (CLI) | payer BC, SELFPAY ==
--- NOTE | ~2024-07-21 | XR_ITS ---
MODIFIED ESOPHAGRAM HISTORY: Dysphagia. TECHNIQUE: Modified barium esophagram was performed on 07/21/2024. I administered fluoroscopy and perf ormed the exam with speech pathologist. Patient was seated for lateral fluoroscopic imaging for sandy stion of thin liquids, pudding, solids and quantified amounts, followed by thin liquids in uncontroll ed amounts. This was recorded on tape. A single fluoroscopic spot image was also recorded. The DAP fo r this procedure was 1.22 Gycm2. The amount of fluoroscopy time used during this procedure was 1.3 mi nutes. FINDINGS: Oral stage: Adequate function. Pharyngeal stage: Adequate function. There is trace residue at the upper esophageal sphincter at the cricopharyngeus following swallows of pudding consistency. Cervical/esophageal stage: Adequate function. IMPRESSION: Patient tolerated regular consistency oral feedings in the upright position. Please ori elate with speech pathologist findings and specific feeding recommendations. Reviewed, dictated and finalized at location A. IMPRESSION: Patient tolerated regular consistency oral feedings in the upright position. Please correlate with speech pathologist findings and specific feedi ng recommendations.
--- OUTSIDE RECORDS SUMMARY | 2024-07-21 13:49 | XMS_ITS | Clinical Summary ---
Author Organization [facility] Address [address] [place] [address] Care Team Providers Care Investment Advisor Name Role Phone Florencio Martinez MD Primary Care Provider [phone] Allergies Active Allergy Reactions Criticality Noted Date Comments Codeine Dizziness Medium 12/21/2018 Medications testosterone 20.25 mg/1.25 gram (1.62 %) gel in metered-dose pump APPLY 1 PUMP (20.25MG) TO SKIN DAILY IN THE MORNING 01/20/2024 Active Active Problems Problem Noted Date Diagnosed Date Age-related nuclear cataract of both eyes 2024 Assessment & Plan (04/03/2024 9:14 AM BEREAVEMENT PROGRAM COORDINATOR): NVS, monitor Anatomical narrow angle borderline glaucoma, amilcar ateral 02/21/2024 Assessment & Plan (04/03/2024 9:15 AM BEREAVEMENT PROGRAM COORDINATOR): Normal intraocular pressure (IOP) both eyes (OU) Angles not closeable on gonio - lens rise both eyes (OU) Fu 1 year sooner prn Assessment & Plan (02/21/2024 8:35 AM BEREAVEMENT PROGRAM COORDINATOR): Normal intraocular pressure (IOP) both eyes (OU) Angles not closeable on gonio - lens rise both eyes (OU) FU for am DFE, pt defers, helicopter ride today Family history of macular degeneration Assessment & Plan (04/03/2024 9:15 AM BEREAVEMENT PROGRAM COORDINATOR): + Brother, mother, - mother had injections Normal exam, monitor Assessment & Plan (02/21/2024 8:36 AM BEREAVEMENT PROGRAM COORDINATOR): + Brother, mother, - mother had injections Fu for DFE Atrophy of both testes 03/17/2013 Hypogonadism in male 06/07/2010 Overview (05/21/2017): Description: Hypogonadism Family History Medical History Relation Name Comments [...] on file Legal Sex Male 1:22 AM BEREAVEMENT PROGRAM COORDINATOR Gender Identity Not on file Sexual Orientation Not on file Obstetrics History Last Filed Vital Signs Vital Sign Reading Time Taken Comments Blood Pressure 110/65 03/23/2014 1:10 PM BEREAVEMENT PROGRAM COORDINATOR Pulse 60 03/23/2014 1:10 PM BEREAVEMENT PROGRAM COORDINATOR Temperature - - Respiratory Rate - - Oxygen Saturation - - Inhaled Oxygen Concentration - - Weight 71.4 kg (157 lb 6.2 oz) 03/23/2014 1:10 P M BEREAVEMENT PROGRAM COORDINATOR Height 174.6 cm (5' 8.75) 03/23/2014 1:10 PM CS T Body Mass Index 23.41 03/23/2014 1:10 PM BEREAVEMENT PROGRAM COORDINATOR Plan of Treatment Health Maintenance Due Date Last Done Comments Colon Cancer Screening-Colonoscopy 1965 Depression Screening 1965 Hepatitis C Screening 1965 Prostate Cancer Screening-PSA 1965 Hepatitis B Screening 1983 Regular Well Visit/Exam 18-64 1983 Zoster Vaccine (1 of 2) 2015 Influenza Vaccine (Season Ended) 2024 DTaP/Tdap/Td Vaccine (3 - Td or Tdap) 07/09/2031 07/08/2021, 05/30/2017 Pneumococcal vaccine <65 Aged Out No longer eligible based on patient's age to complete this topic Insurance [employer] OOS Care Teams Investment Advisor Relationship Specialty Start Date End Date Florencio Martinez MD PCP - General Internal Medicine 06/14/17
--- OUTSIDE RECORDS SUMMARY | 2024-07-21 13:49 | XMS_ITS | Patient Health Record ---
Author Organization [facility] Address [address] [place], [place] [phone] Care Team Providers Care Concrete Mason Name Role Phone Florencio Martinez Unavailable Unavailable DORA WELSH Unavailable [phone] Allergies Allergen (clinical drug ingredient) Drug/Non Drug [...] Location Date Provider Diagnosis [facility] [address] [place], [place] [phone] 09/20/2023 DORA SNOOK [facility] [place] [id number] [facility] [address] [place], [place] [phone] 09/20/2023 DORA SNOOK Plan Of Treatment No Information Insurance Providers Payer Name Payer Address Payer Phone Subscriber Number Group Number Insured Name Patient Relationship to Insured Coverage Start Date Coverage End Date [facility] ([facility]) ATTN CLAIMS [address] [place] [address] [id number] OPAL OSCAR Self - patient is the insured Medical (General) History Medical History History ICD Code anemia Skin Disorder Surgical History Surgery Date(Month/Year) Hand surgery
--- OUTSIDE RECORDS SUMMARY | 2024-07-21 13:49 | XMS_ITS | Referral Summary ---
Author Organization [facility] Address [address] [place] [id number] Care Team Providers Care Laborer Laboratory Name Role Phone Florencio Martinez MD Primary Care Provider [phone] Allergies Active Allergy Reactions Criticality Noted Date Comments Codeine Dizziness Medium 12/21/2018 Medications testosterone 20.25 mg/1.25 gram (1.62 %) gel in metered-dose pump APPLY 1 PUMP (20.25MG) TO SKIN DAILY IN THE MORNING 01/20/2024 Active Active Problems Problem Noted Date Diagnosed Date Age-related nuclear cataract of both eyes 2024 Assessment & Plan (04/03/2024 9:14 AM [employer] [facility]RARIAN): NVS, monitor Anatomical narrow angle borderline glaucoma, amilcar ateral 02/21/2024 Assessment & Plan (04/03/2024 9:15 AM [employer] LIBRARIAN): Normal intraocular pressure (IOP) both eyes (OU) Angles not closeable on gonio - lens rise both eyes (OU) Fu 1 year sooner prn Assessment & Plan (02/21/2024 8:35 AM [employer] LIBRARIAN): Normal intraocular pressure (IOP) both eyes (OU) Angles not closeable on gonio - lens rise both eyes (OU) FU for am DFE, pt defers, helicopter ride today Family history of macular degeneration Assessment & Plan (04/03/2024 9:15 AM [employer] LIBRARIAN): + Brother, mother, - mother had injections Normal exam, monitor Assessment & Plan (02/21/2024 8:36 AM [employer] LIBRARIAN): + Brother, mother, - mother had injections Fu for DFE Atrophy of both testes 03/17/2013 Hypogonadism in male 06/07/2010 Overview (05/21/2017): Description: Hypogonadism Social History Tobacco Use Types Packs/Day Years Used Date Smoking Tobacco: Never Sex and Gender Information Value Date Recorded Sex Assigned at Not on file Legal Sex Male 1:22 AM [employer] Gender Identity Not on file Sexual Orientation Not on file Last Filed Vital Signs Vital Sign Reading Time Taken Comments Blood Pressure 110/65 03/23/2014 1:10 PM [employer] Pulse 60 03/23/2014 1:10 PM [employer] Temperature - - Respiratory Rate - - Oxygen Saturation - - Inhaled Oxygen Concentration - - Weight 71.4 kg (157 lb 6.2 oz) 03/23/2014 1:10 P M [employer] Height 174.6 cm (5' 8.75) 03/23/2014 1:10 PM CS T Body Mass Index 23.41 03/23/2014 1:10 PM [employer]AR[facility] Plan of Treatment Not on file Insurance [employer] O[employer] Care Teams Laborer Laboratory Relationship Specialty Start Date End Date Florencio Martinez MD PCP - General Internal Medicine 06/14/17
--- NOTE | 2024-07-21 14:42 | REHSTMBS ---
Assessment and note entered by Chelsi Fernandes ELECTRICAL INSTRUMENT REPAIRER Modified Barium Swallow Evaluation Feeding Type Recommended Oral ST Clinical Summary The above pleasant and cooperative pt was seen for an outpatient modified barium swallow. He was alert, oriented, and able to follow commands. He is on a regular diet and reports odynophagia x few months which began with sudden loss of ability to vocalize. He denied coughing or choking associated with liquids or solids but states he has pain from the vocal cords to the R ear. He stated, if anything, it hurts to drink water & it feels like a never ending sore throat. Reportedly his vocal cords were WNL. He denies voice changes. Oral mucosa is normal; natural dentition is in good condition; he was able to dry swallow on command and exhibited a clear vocal quality. The patient was seated for a lateral view and presented with 5 ml trials of thin liquid barium via a spoon, pudding consistency barium via a spoon, cracker pieces coated with barium pudding via a spoon, and uncontrolled thin liquid barium. This was presented via a cup & straw. Oral preparatory and oral phase symptoms: none. Pharyngeal/esophageal phase symptoms: within functional limits; but a trace residual was noted only with the pudding trials at the level of the cricopharyngeus muscle which was cleared with a dry swallow. No laryngeal penetration or aspiration occurred. No backflow noted. Impressions: Normal/functional swallow Ability No further ST is warranted at this time.
== END 2024-07-21 13:40 | disposition home or self-care (01) ==
PROVIDERS: PCP Internal Medicine; Visit Provider Otolaryngology
DX: R13.10 Dysphagia, unspecified (principal)
CPT/HCPCS: 92611